=== PATIENT | female | born 1950 | race Caucasian/White ===

== ENCOUNTER 2018-02-19 10:20 | Emergency (ER) | payer OTHER ==
[~2018-02-19] VITALS: Ht 157.5 cm; Wt 82.1 kg
[~2018-02-19 10:20] MED LIST: CALC500T3 PO; CALC600T20 PO; CHOL20004 PO; CHOL500037 PO; DOCU250C14 PO; FERR-57 PO; HYDR-1189 PO; RIVA10TA PO
[2018-02-19 10:25] VITALS: BP_SYST 159
[2018-02-19 13:57] VITALS: BP_SYST 137
== END 2018-02-19 12:39 | disposition home or self-care (01) ==
LOC: SED 10:20
DX: S33.5XXA Sprain of ligaments of lumbar spine, initial encounter (principal); S13.4XXA Sprain of ligaments of cervical spine, initial encounter; S20.219A Contusion of unspecified front wall of thorax, initial encounter; E11.9 Type 2 diabetes mellitus without complications; I10 Essential (primary) hypertension; E78.00 Pure hypercholesterolemia, unspecified; Z79.899 Other long term (current) drug therapy; V43.52XA Car driver injured in collision with other type car in traffic accident, initial encounter; Y93.89 Activity, other specified; Y92.488 Other paved roadways as the place of occurrence of the external cause; Y99.8 Other external cause status
CPT/HCPCS: 71045; 72100; 72125; 99283; J7030